=== PATIENT | female | born 1950 | race African-American/Black ===

== ENCOUNTER 2016-11-17 15:11 | Emergency (ER) | payer BC ==
[2016-11-17] MEDS ORDERED: NS 0.9% 1000 ML* 1,000 ML IV ONE (15:46)
[2016-11-17 16:30] LABS: Hematocrit 37 % (35-47); Hemoglobin 11.6 g/dl (12.0-16.0); Mean Corpuscular HGB Conc 32 g/dl (31-36); Mean Corpuscular Hemoglobin 23 pg (27-31); Mean Corpuscular Volume 73 fL (80-97); Mean Platelet Volume 9 um3 (7.4-10.4); Red Cell Distribution Width 16 % (10.5-15); White Blood Count 9.1 10^3/ul (3.5-10.8)
[2016-11-17 16:34] LABS: Add Diff/Slide Review? Slide Review Added; Comments Flag Yes
[2016-11-17 16:35] LABS: Albumin 4.1 g/dL (3.2-5.2); BUN/Creatinine Ratio 18.6 (8-20); C Reactive Protein 2.77 mg/L (< 5.00); Calcium 9.9 mg/dL (8.6-10.3); EGFR African American 85.4 (>60); EGFR Non-African American 66.4 (>60); Globulin 3.6 g/dL (2-4); Magnesium 2.3 mg/dL (1.9-2.7); Potassium 3.6 mmol/L (3.5-5.0); Total Bilirubin 0.4 mg/dL (0.2-1.0); Total Protein 7.7 g/dL (6.4-8.9)
[2016-11-17] MEDS ORDERED: Iohexol 300* (CONTRAST) 10 ML SDV IV ONE (16:56)
[2016-11-17 17:42] LABS: Urine Bacteria Absent (Absent); Urine Bilirubin Negative (Negative); Urine Glucose Negative (Negative); Urine Nitrite Negative (Negative)
[2016-11-17 18:25] VITALS: BP 173/88
[2016-11-17] MEDS ORDERED: Ondansetron INJ* 2 MG/ML VIAL IV ONE (18:48)
--- NOTE | 2016-11-17 20:10 | RAD ---
CLINICAL HISTORY: Intermittent abdominal pain and cramping. COMPARISON: None TECHNIQUE: Contrast enhanced CT examination of the abdomen and pelvis from the lung bases through the initial tuberosities. The patient received 89 mL Omnipaque 300 intravenously prior to imaging.The patient received oral contrast as well prior to imaging. FINDINGS: VISUALIZED LUNG BASES: The visualized lung bases are grossly clear. There is no pleural effusion. ABDOMEN AND PELVIS: The liver, spleen, pancreas and adrenal glands are grossly normal in appearance. The gallbladder is normal. At the lower pole of the right kidney (coronal image 54) there is a 3 mm calcification. Otherwise the kidneys are normal in appearance without focal mass or signs of hydronephrosis. The oral contrast has progressed as far as the splenic flexure. The small and large bowel are not distended. The diminutive 4 mm diameter appendix is identified in the right lower quadrant (image 53) with a small amount of gas in the lumen. The gas and stool-filled colon does not exhibit any acute inflammatory change. There is no gross retroperitoneal or mesenteric lymphadenopathy. The pelvic viscera is normal in appearance. The mildly calcified abdominal aorta and iliac arteries are normal in course and diameter. Diffusely in the visualized vertebral body exhibit a "mottled" appearance with innumerable small foci of hyperattenuation (for example sagittal image 60 of 136). To a lesser extent a similar appearance is seen in the pelvis and visualized femurs. This is not seen in the visualized ribs. IMPRESSION: 1. No acute inflammatory change of the gastrointestinal tract. 2. Innumerable hyperattenuating foci seen throughout the visualized vertebral bodies of uncertain clinical significance. Please correlate to a history of malignancy or perhaps metabolic disorder such as hyperparathyroidism. 3. Additional chronic and degenerative changes described in the body of the report.
--- NOTE | 2016-11-18 08:51 | ED ---
Aleksandra Dugan Claudia, scribed for Levi Elizalde MD on 11/17/16 at 1547 . Abdominal Pain/Female - HPI Summary HPI Summary: 66 year old female presets to [facility] with abd pain and diarrhea sudden onset that has been consistent since. She denies fever, chills, nausea, vomiting. Pt notes the abd discomfort is in the form of cramping. Pt notes that she has been to her PCP several times and was given a Rx to stop the diarrhea but it makes her constipated and uncomfortable. Pt just returned from vacation in [facility]. She notes that she thinks she might have a parasite since she has associated Sx of weight loss. Pt denies any alleviating or aggravating factors. - History of Current Complaint Chief Complaint: EDAbdPain Stated Complaint: ABD PAIN Time Seen by Provider: 11/17/16 15:36 Hx Obtained From: Patient Onset/Duration: Sudden Onset, Lasting Weeks, Still Present Timing: Constant Pain Intensity: 8 Pain Scale Used: 0-10 Numeric Location: Diffuse Radiates: No Character: Cramping Aggravating Factor(s): Nothing Alleviating Factor(s): Nothing Associated Signs and Symptoms: Positive: Diarrhea. Negative: Fever, Blood in Stool, Nausea, Vomiting Allergies/Adverse Reactions: Allergies Allergy/AdvReac Type Severity Reaction Status Date / Time No Known Allergies Allergy Verified 01/04/15 14:29 Home Medications: Home Medications Omeprazole CAP* [Prilosec CAP* 20 MG] 11/17/16 [History] PMH/Surg Hx/FS Hx/Imm Hx Previously Healthy: Yes Endocrine/Hematology History: Denies: Hx Diabetes Cardiovascular History: Denies: Hx Hypertension Respiratory History: Reports: Hx Asthma Infectious Disease History: No Infectious Disease History: Denies: Hx Clostridium Difficile, Hx Hepatitis, Hx Human Immunodeficiency Virus (HIV), Hx of Known/Suspected MRSA, Hx Shingles, Hx Tuberculosis, Hx Known/ Suspected VRE, Hx Known/Suspected VRSA, History Other Infectious Disease, Traveled Outside the [place] in Last 30 Days - Family History Known Family History: Positive: Hypertension, Diabetes - Social History Occupation: Employed Full-time Lives: With Family Alcohol Use: None Substance Use Type: Reports: None Smoking Status (MU): Never Smoked Tobacco Review of Systems Positive: Other - weight loss. Negative: Fever, Chills Eyes: Negative ENT: Negative Cardiovascular: Negative Respiratory: Negative Positive: Abdominal Pain, Diarrhea. Negative: Vomiting, Nausea Genitourinary: Negative Musculoskeletal: Negative Skin: Negative Neurological: Negative Psychological: Normal All Other Systems Reviewed And Are Negative: Yes Physical Exam - Summary Physical Exam Summary: VITAL SIGNS: Reviewed. GENERAL: Patient is a well-developed and nourished female who is lying comfortable in the stretcher. Patient is not in any acute respiratory distress. HEAD AND FACE: No signs of trauma. No ecchymosis, hematomas or skull depressions. No sinus tenderness. EYES: PERRLA, EOMI x 2, No injected conjunctiva, no nystagmus. EARS: Hearing grossly intact. Ear canals and tympanic membranes are within normal limits. MOUTH: Oropharynx within normal limits. NECK: Supple, trachea is midline, no adenopathy, no JVD, no carotid bruit, no c- spine tenderness, neck with full ROM. CHEST: Symmetric, no tenderness at palpation LUNGS: Clear to auscultation bilaterally. No wheezing or crackles. CVS: Regular rate and rhythm, S1 and S2 present, no murmurs or gallops appreciated. ABDOMEN: Soft. No signs of distention. No rebound no guarding, and no masses palpated. Bowel sounds are normal. Some tenderness in the left upper quadrant. EXTREMITIES: FROM in all major joints, no edema, no cyanosis or clubbing. NEURO: Alert and oriented x 3. No acute neurological deficits. Speech is normal and follows commands. SKIN: Dry and warm Triage Information Reviewed: Yes Vital Signs On Initial Exam: Initial Vitals Temp Pulse Resp BP Pulse Ox 98.2 F 90 20 179/80 98 11/17/16 15:13 11/17/16 15:13 11/17/16 15:13 11/17/16 15:13 11/17/16 15:13 Vital Signs Reviewed: Yes - [place] Coma Scale Coma Scale Total: 15 Diagnostics - Vital Signs Vital Signs Temp Pulse Resp BP Pulse Ox 11/17/16 15:13 98.2 F 90 20 179/80 98 - Laboratory Lab Results: Lab Results 11/17/16 11/17/16 11/17/16 Range/Units 16:05 16:05 16:05 WBC 9.1 (3.5-10.8) 10^3/ul RBC 5.00 (4.0-5.4) 10^6/ul Hgb 11.6 L (12.0-16.0) g/dl Hct 37 (35-47) % MCV 73 L (80-97) fL MCH 23 L (27-31) pg MCHC 32 (31-36) g/dl RDW 16 H (10.5-15) % Plt Count 216 (150-450) 10^3/ul MPV 9 (7.4-10.4) um3 Neut % (Auto) 46.6 (38-83) % Lymph % (Auto) 37.6 (25-47) % [place] % (Auto) 9.2 H (1-9) % Eos % (Auto) 6.1 H (0-6) % Baso % (Auto) 0.5 (0-2) % Absolute Neuts (auto) 4.3 (1.5-7.7) 10^3/ul Absolute Lymphs (auto) 3.4 (1.0-4.8) 10^3/ul Absolute Monos (auto) 0.8 (0-0.8) 10^3/ul Absolute Eos (auto) 0.6 (0-0.6) 10^3/ul Absolute Basos (auto) 0 (0-0.2) 10^3/ul Absolute Nucleated RBC 0.01 10^3/ul Nucleated RBC % 0.1 Sodium 136 (133-145) mmol/L Potassium 3.6 (3.5-5.0) mmol/L Chloride 104 (101-111) mmol/L Carbon Dioxide 28 (22-32) mmol/L Anion Gap 4 (2-11) mmol/L BUN 16 (6-24) mg/dL Creatinine 0.86 (0.51-0.95) mg/dL Est GFR ( Amer) 85.4 (>60) Est GFR (Non-Af Amer) 66.4 (>60) BUN/Creatinine Ratio 18.6 (8-20) Glucose 100 (70-100) mg/dL Lactic Acid 0.7 (0.5-2.0) mmol/L Calcium 9.9 (8.6-10.3) mg/dL Magnesium 2.3 (1.9-2.7) mg/dL Total Bilirubin 0.40 (0.2-1.0) mg/dL AST 17 (13-39) U/L ALT 11 (7-52) U/L Alkaline Phosphatase 94 (34-104) U/L C-Reactive Protein 2.77 (< 5.00) mg/L Total Protein 7.7 (6.4-8.9) g/dL Albumin 4.1 (3.2-5.2) g/dL Globulin 3.6 (2-4) g/dL Albumin/Globulin Ratio 1.1 (1-3) Amylase 42 (29-103) U/L Lipase 13 (11.0-82.0) U/L Urine Color Urine Appearance Urine pH (5-9) Ur Specific [place] (1.010-1.030) Urine Protein (Negative) Urine Ketones (Negative) Urine Blood (Negative) Urine Nitrate (Negative) Urine Bilirubin (Negative) Urine Urobilinogen (Negative) Ur Leukocyte Esterase (Negative) Urine WBC (Auto) (Absent) Urine RBC (Auto) (Absent) Ur Squamous Epith Cells (Absent) Urine Bacteria (Absent) Urine Glucose (Negative) 11/17/16 Range/Units 17:22 WBC (3.5-10.8) 10^3/ul RBC (4.0-5.4) 10^6/ul Hgb (12.0-16.0) g/dl Hct (35-47) % MCV (80-97) fL MCH (27-31) pg MCHC (31-36) g/dl RDW (10.5-15) % Plt Count (150-450) 10^3/ul MPV (7.4-10.4) um3 Neut % (Auto) (38-83) % Lymph % (Auto) (25-47) % [place] % (Auto) (1-9) % Eos % (Auto) (0-6) % Baso % (Auto) (0-2) % Absolute Neuts (auto) (1.5-7.7) 10^3/ul Absolute Lymphs (auto) (1.0-4.8) 10^3/ul Absolute Monos (auto) (0-0.8) 10^3/ul Absolute Eos (auto) (0-0.6) 10^3/ul Absolute Basos (auto) (0-0.2) 10^3/ul Absolute Nucleated RBC 10^3/ul Nucleated RBC % Sodium (133-145) mmol/L Potassium (3.5-5.0) mmol/L Chloride (101-111) mmol/L Carbon Dioxide (22-32) mmol/L Anion Gap (2-11) mmol/L BUN (6-24) mg/dL Creatinine (0.51-0.95) mg/dL Est GFR ( Amer) (>60) Est GFR (Non-Af Amer) (>60) BUN/Creatinine Ratio (8-20) Glucose (70-100) mg/dL Lactic Acid (0.5-2.0) mmol/L Calcium (8.6-10.3) mg/dL Magnesium (1.9-2.7) mg/dL Total Bilirubin (0.2-1.0) mg/dL AST (13-39) U/L ALT (7-52) U/L Alkaline Phosphatase (34-104) U/L C-Reactive Protein (< 5.00) mg/L Total Protein (6.4-8.9) g/dL Albumin (3.2-5.2) g/dL Globulin (2-4) g/dL Albumin/Globulin Ratio (1-3) Amylase (29-103) U/L Lipase (11.0-82.0) U/L Urine Color Straw Urine Appearance Clear Urine pH 6.0 (5-9) Ur Specific [place] 1.006 L (1.010-1.030) Urine Protein Negative (Negative) Urine Ketones Negative (Negative) Urine Blood 1+ H (Negative) Urine Nitrate Negative (Negative) Urine Bilirubin Negative (Negative) Urine Urobilinogen Negative (Negative) Ur Leukocyte Esterase Negative (Negative) Urine WBC (Auto) Trace(0-5/hpf) (Absent) Urine RBC (Auto) 1+(3-5/hpf) H (Absent) Ur Squamous Epith Cells Present H (Absent) Urine Bacteria Absent (Absent) Urine Glucose Negative (Negative) Result Diagrams: 11/17/16 16:05 11/17/16 16:05 Lab Statement: Any lab studies that have been ordered have been reviewed, and results considered in the medical decision making process. - EKG 17:25 Cardiac Rate: NL EKG Rhythm: Sinus Rhythm - 68 beats/min ST Segment: Normal - no ST elevation Abdominal Pain Fem Course/Dx - Course Course Of Treatment: 66 year old female presets to [facility] with abd pain and diarrhea sudden onset that has been consistent since. She denies fever, chills, nausea, vomiting. Pt notes the abd discomfort is in the form of cramping. Pt notes that she has been to her PCP several times and was given a Rx to stop the diarrhea but it makes her constipated and uncomfortable. Pt just returned from vacation in [facility]. She notes that she thinks she might have a parasite since she has associated Sx of weight loss. Pt denies any alleviating or aggravating factors. In the ED course an IV access was obtained. Patient was placed in a quality assurance monitor body. Patient was started with IV fluids and Zofran for nausea and vomiting. Labs within normal limits except for Hb 11.6 w/o bands. UA contaminated. After medications she reports feeling better. EKG shows a NSR at w/o ST elevations. She is drinking oral contrast for a CT scan to r/o diverticulitis since she report increase pain in the LLQ. We are also awaiting for stool cultures. I will signed out the patient to Dr. Gipson to f/u abdominal and pelvic CT and stool cultures and fecal leukocytes. She is hemodynamically stable and A+O x 3. - Diagnoses Differential Diagnosis: Positive: Bowel Obstruction, Diverticulitis, Urinary Tract Infection Provider Diagnoses: Abdominal pain, Diarrhea Discharge - Discharge Plan Condition: Stable Disposition: HOME Discharge Disposition Comment: Sign-out to Dr. Larios waiting Abd CT Patient Education Materials: Acute Diarrhea (ED), Abdominal Pain (ED) Referrals: Gilberto Haley MD [Primary Care Provider] - Additional Instructions: Please follow up with your primary care provider. The documentation as recorded by the Aleksandra shin Claudia accurately reflects the service I personally performed and the decisions made by me, Levi Elizalde MD.
--- NOTE | 2016-11-18 10:04 | ED ---
Progress - Progress Note Progress Note: 66 y/o F was signed out from Dr. Elizalde. Discussed results with pt at 2023. Pt will be DC'd. UPDATE: Pt's stool cx + lactoferrin; (-) c. diff; other cx's still pending. No change in tx until all results returned. AKUA ONTIVEROS 10:04 - Results/Orders Results/Orders: CT A/P IMPRESSION: 1. No acute inflammatory change of the gastrointestinal tract. 2. Innumerable hyperattenuating foci seen throughout the visualized vertebral bodies of uncertain clinical significance. Please correlate to a history of malignancy or perhaps metabolic disorder such as hyperparathyroidism. 3. Additional chronic and degenerative changes described in the body of the report. Course/Dx - Course Course Of Treatment: 66 year old female presets to [facility] with abd pain and diarrhea sudden onset that has been consistent since. She denies fever, chills, nausea, vomiting. Pt notes the abd discomfort is in the form of cramping. Pt notes that she has been to her PCP several times and was given a Rx to stop the diarrhea but it makes her constipated and uncomfortable. Pt just returned from vacation in [facility]. She notes that she thinks she might have a parasite since she has associated Sx of weight loss. Pt denies any alleviating or aggravating factors. In the ED course an IV access was obtained. Patient was placed in a regional director. Patient was started with IV fluids and Zofran for nausea and vomiting. Labs within normal limits except for Hb 11.6 w/o bands. UA contaminated. After medications she reports feeling better. EKG shows a NSR at w/o ST elevations. She is drinking oral contrast for a CT scan to r/o diverticulitis since she report increase pain in the LLQ. We are also awaiting for stool cultures. I will signed out the patient to Dr. Gipson to f/u abdominal and pelvic CT and stool cultures and fecal leukocytes. She is hemodynamically stable and A+O x 3. - Diagnoses Provider Diagnoses: Abdominal pain, Diarrhea
== END 2016-11-17 21:24 | disposition home or self-care (01) ==
LOC: ED 15:11
DX: R10.9 Unspecified abdominal pain (principal); R19.7 Diarrhea, unspecified
CPT/HCPCS: 36415; 74177; 80053; 81003; 81015; 82150; 83605; 83630; 83690; 83735; 85025; 86140; 87045; 87046; 87493; 87899; 93005; 96374; 99283; Q9967

== ENCOUNTER 2017-11-26 19:27 | Emergency (ER) | payer BC ==
[2017-11-26] MEDS ORDERED: Lidocaine 2% VISCOUS* 15 ML UDC PO ONE (20:33)
--- NOTE | 2017-11-26 21:34 | ED ---
Throat Pain/Nasal Congestion - HPI Summary HPI Summary: Complains of subjective fever, chills, green nasal discharge, cough, sore throat , mild CHEN, bilateral ear pain 4 days. Denies SOB, CP, N/V/D, abdominal pain, change in urinary BM. Medical history is allergies, asthma. - History of Current Complaint Chief Complaint: EDThroatPain Time Seen by Provider: 11/26/17 20:12 Hx Obtained From: Patient Onset/Duration: Gradual Onset Severity: Moderate Associated Signs And Symptoms: Positive: Dysphagia, Sinus Discomfort, Nasal Discharge Cough: Nonproductive Related History: Seasonal Allergies - Epiglottits Risk Factors Epiglottis Risk Factors: Negative - Allergies/Home Medications Allergies/Adverse Reactions: Allergies Allergy/AdvReac Type Severity Reaction Status Date / Time No Known Allergies Allergy Verified 01/04/15 14:29 PMH/Surg Hx/FS Hx/Imm Hx Endocrine/Hematology History: Denies: Hx Anticoagulant Therapy, Hx Diabetes Cardiovascular History: Denies: Hx Hypertension Respiratory History: Reports: Hx Asthma History: Denies: Hx Dialysis Infectious Disease History: No Infectious Disease History: Denies: Hx Clostridium Difficile, Hx Hepatitis, Hx Human Immunodeficiency Virus (HIV), Hx of Known/Suspected MRSA, Hx Shingles, Hx Tuberculosis, Hx Known/ Suspected VRE, Hx Known/Suspected VRSA, History Other Infectious Disease, Traveled Outside the [place] in Last 30 Days - Family History Known Family History: Positive: Hypertension, Diabetes - Social History Alcohol Use: None Substance Use Type: Reports: None Smoking Status (MU): Never Smoked Tobacco Review of Systems Positive: Fever, Chills Eyes: Negative Positive: Sore Throat, Ear Ache, Nasal Discharge Cardiovascular: Negative Respiratory: Negative Gastrointestinal: Negative Genitourinary: Negative Musculoskeletal: Negative Skin: Negative Positive: Headache Psychological: Normal All Other Systems Reviewed And Are Negative: Yes Physical Exam Triage Information Reviewed: Yes Vital Signs On Initial Exam: Initial Vitals Temp Pulse Resp BP Pulse Ox 98.6 F 85 20 150/78 98 11/26/17 19:38 11/26/17 19:38 11/26/17 19:38 11/26/17 19:38 11/26/17 19:38 Vital Signs Reviewed: Yes Appearance: Positive: Well-Appearing Skin: Positive: Warm Head/Face: Positive: Normal Head/Face Inspection Eyes: Positive: Normal ENT: Positive: Pharyngeal erythema, Nasal drainage, TMs normal, Tonsillar swelling, Sinus tenderness, Uvula midline. Negative: Tonsillar exudate, Trismus , Muffled voice, Hoarse voice Neck: Positive: Supple Respiratory/Lung Sounds: Positive: Clear to Auscultation Cardiovascular: Positive: Normal Abdomen Description: Positive: Nontender Musculoskeletal: Positive: Normal Neurological: Positive: Normal Psychiatric: Positive: Normal AVPU Assessment: Alert - Jeff Coma Scale Best Eye Response: 4 - Spontaneous Best Motor Response: 6 - Obeys Commands Best Verbal Response: 5 - Oriented Coma Scale Total: 15 Diagnostics - Vital Signs Vital Signs Temp Pulse Resp BP Pulse Ox 11/26/17 19:38 98.6 F 85 20 150/78 98 - Laboratory Lab Statement: Any lab studies that have been ordered have been reviewed, and results considered in the medical decision making process. EENT Course/Dx - Course Course Of Treatment: Complains of subjective fever, chills, green nasal discharge, cough, sore throat, mild CHEN, bilateral ear pain 4 days. Denies SOB , CP, N/V/D, abdominal pain, change in urinary BM. Medical history is allergies , asthma. Strep negative. Likely sinusitis. Vital signs within normal limits. Rx for azithromycin, lidocaine, hydrocodone 5 mg 5 tabs to help patient sleep with throat pain - Diagnoses Provider Diagnoses: Sinusitis Discharge - Sign-Out/Discharge Documenting (check all that apply): Patient Departure - Discharge Plan Condition: Stable Disposition: HOME Prescriptions: Azithromycin 250 mg PO DAILY 5 Days #4 tablet HYDROcodone/ACETAMIN 5-325 MG* [[place] 5-325 TAB*] 1 tab PO Q6H PRN 2 Days #5 tab MDD 4 tabs PRN Reason: Pain Lidocaine 2% VISCOUS* [Xylocaine 2% Viscous*] 15 ml SWISH SPIT Q6H PRN #1 btl PRN Reason: Pain Patient Education Materials: Sinusitis (ED) Referrals: Gilberto Haley MD [Primary Care Provider] - Additional Instructions: Follow-up with primary care. Return to the ED for any new or worsening symptoms - Billing Disposition and Condition Condition: STABLE Disposition: Home
[2017-11-26] MEDS ORDERED: Azithromycin TAB* 250 MG PO ONE (22:18)
[2017-11-26] MEDS ORDERED: Ibuprofen TAB* 600 MG PO ONE (22:35)
[2017-11-26] MEDS ORDERED: Ibuprofen TAB* 600 MG ONE (22:36)
[2017-11-26 22:43] VITALS: BP 142/76
== END 2017-11-26 22:43 | disposition home or self-care (01) ==
LOC: ED 19:27
DX: J32.9 Chronic sinusitis, unspecified (principal); R51 Headache; J02.9 Acute pharyngitis, unspecified; H92.09 Otalgia, unspecified ear
CPT/HCPCS: 87651; 99282; A9270-GY

== ENCOUNTER 2018-04-11 15:58 | Emergency (ER) | payer BC ==
[2018-04-11 16:29] VITALS: BP 158/87
--- NOTE | 2018-04-11 17:43 | UC ---
Complaint Female HPI - HPI Summary HPI Summary: ONSET OF RIGHT FLANK PAIN LAST WEEK GETTING PROGRESSIVELY WORSE. PATIENT DENIES FEVER OR NAUSEA. HAD SOME URINARY FREQUENCY LAST NIGHT BUT NONE TODAY. NO DYSURIA OR VISIBLE HEMATURIA. HAD A KIDNEY STONE LAST YEAR WHILE SHE WAS [place]SE[place]. WHEN SHE RETURNED TO [place] SHE FOLLOWED UP WITH HER PCP AND WAS TOLD SHE WAS CLEAR. - History Of Current Complaint Chief Complaint: UCBackPain Stated Complaint: BACK PAIN Time Seen by Provider: 04/11/18 17:23 Hx Obtained From: Patient Onset/Duration: Gradual Onset, Lasting Days, Still Present Timing: Constant Severity Initially: Moderate Severity Currently: Moderate Pain Intensity: 8 Pain Scale Used: 0-10 Numeric Character: Sharp Aggravating Factor(s): Movement Alleviating Factor(s): Position Associated Signs And Symptoms: Positive: Back Pain. Negative: Fever, Nausea - Allergies/Home Medications Allergies/Adverse Reactions: Allergies Allergy/AdvReac Type Severity Reaction Status Date / Time No Known Allergies Allergy Verified 04/11/18 16:29 PMH/Surg Hx/FS Hx/Imm Hx Respiratory History: Asthma GI/ History: Kidney Stones Other History Of: Negative For: Anticoagulant Therapy - Surgical History Surgical History: None - Family History Known Family History: Positive: Hypertension, Diabetes - Social History Alcohol Use: None Substance Use Type: None Smoking Status (MU): Never Smoked Tobacco Review of Systems All Other Systems Reviewed And Are Negative: Yes Constitutional: Positive: Negative Respiratory: Positive: Negative Cardiovascular: Positive: Negative Gastrointestinal: Positive: Negative Genitourinary: Positive: Frequency, Other - RIGHT FLANK PAIN Physical Exam Triage Information Reviewed: Yes Appearance: Well-Appearing, No Pain Distress, Well-Nourished Vital Signs: Initial Vital Signs Temp 98.0 F 04/11/18 16:24 Pulse 85 04/11/18 16:24 Resp 16 04/11/18 16:24 BP 158/87 04/11/18 16:24 Pulse Ox 99 04/11/18 16:24 Laboratory Tests 04/11/18 17:49 POC Urine Color Yellow POC Urine Clarity Clear POC Urine pH 6.5 POC Ur Specif [place] 1.025 POC Urine Protein Negative POC Ur Glucose (UA) Negative POC Urine Ketones Negative POC Urine Blood Negative POC Urine Nitrite Negative POC Urine Bilirubin Negative POC Urine Urobilinogen 0.2 POC U Leukocyte Esteras Negative Vital Signs Reviewed: Yes Eyes: Positive: Conjunctiva Clear ENT: Positive: Hearing grossly normal Neck: Positive: Supple Respiratory Exam: Normal Cardiovascular Exam: Normal Abdomen Description: Positive: Nontender, Soft. Negative: CVA Tenderness (R), CVA Tenderness (L), Distended, Guarding Musculoskeletal: Positive: No Edema, Other: - RIGHT MID/LOW BACK PAIN WITH BENDING AND ROTATING TO RIGHT Neurological: Positive: Alert Psychological: Positive: Normal Response To Family, Age Appropriate Behavior Skin: Negative: Rashes Complaint Female Dx - Course Course Of Treatment: PATIENTS CLINICAL PRESENTATION IS NOT CONSISTENT WITH KIDNEY STONE TODAY. URINE DIP UNREMARKABLE. WE'LL TREAT MUSCLE STRAIN WITH MUSCLE RELAXER AND IBUPROFEN. REST, STRETCH, HEAT. TO THE ED IF SYMPTOMS WORSEN. - Differential Dx/Diagnosis Provider Diagnosis: Muscle strain Discharge - Sign-Out/Discharge Documenting (check all that apply): Patient Departure All imaging exams completed and their final reports reviewed: No Studies - Discharge Plan Condition: Stable Disposition: HOME Prescriptions: Cyclobenzaprine TAB* [Flexeril TAB*] 10 mg PO BID PRN #30 tab PRN Reason: Pain Ibuprofen TAB* [Motrin TAB* 600 MG] 1 tab PO Q6H PRN #30 tab PRN Reason: Pain Patient Education Materials: Muscle Strain (ED), Low Back Strain (ED) Referrals: Gilberto Haley MD [Primary Care Provider] - If Needed Additional Instructions: URINE TEST UNREMARKABLE TODAY. NO EVIDENCE OF KIDNEY STONE OR URINARY TRACT INFECTION. PRESENTATION MORE CONSISTENT WITH AN ACUTE MUSCLE STRAIN. TAKE IBUPROFEN NEEDED FOR DISCOMFORT. MUSCLE RELAXER BEFORE BED. YOUR SYMPTOMS SHOULD IMPROVE SIGNIFICANTLY OVER THE NEXT 1-2 WEEKS. IF YOU DO NOT IMPROVE EXPECTED FOLLOW-UP WITH YOUR PCP. BE SURE TO GO THROUGH SLOW RANGE OF MOTION AND STRETCHING EXERCISES DAILY YOU ARE ABLE TO PREVENT STIFFENING UP AND MAKING THE DISCOMFORT WORSE. GO TO THE ED WITHOUT FAIL IF YOU DEVELOP WORSENING PAIN, FEVER, BLOOD IN THE URINE, NAUSEA OR ANY OTHER CONCERNING SYMPTOMS. - Billing Disposition and Condition Condition: STABLE Disposition: Home
== END 2018-04-11 18:26 | disposition home or self-care (01) ==
LOC: UCEAST 15:58
DX: S39.012A Strain of muscle, fascia and tendon of lower back, initial encounter (principal); X58.XXXA Exposure to other specified factors, initial encounter; Y92.9 Unspecified place or not applicable; R35.0 Frequency of micturition; Z87.442 Personal history of urinary calculi
CPT/HCPCS: 81003; 99212; G0463

== ENCOUNTER 2018-04-14 16:53 | Emergency (ER) | payer BC ==
[2018-04-14] MEDS ORDERED: Ondansetron INJ* 2 MG/ML VIAL IV ONE (17:26)
[2018-04-14] MEDS ORDERED: Morphine VIAL* 4 MG/ML VIAL (1 ml vial) IV ONE (17:26)
[2018-04-14 17:46] LABS: Hematocrit 37 % (35-47); Hemoglobin 11.7 g/dl (12.0-16.0); Mean Corpuscular HGB Conc 31 g/dl (31-36); Mean Corpuscular Hemoglobin 22 pg (27-31); Mean Platelet Volume 9.4 fL (7.4-10.4); Platelet Count 223 10^3/ul (150-450); Red Blood Count 5.26 10^6/ul (4.00-5.40); Red Cell Distribution Width 15 % (10.5-15); White Blood Count 12.8 10^3/ul (3.5-10.8)
--- NOTE | 2018-04-14 17:48 | ED ---
Throat Pain/Nasal Congestion - HPI Summary HPI Summary: This patient is a 67 year old F presenting to [facility] with a chief complaint of bleeding from the lower left jaw from tooth extraction since 16:30 today. The patient rates the pain 8/10 in severity. Patient was coming from [facility] with Dr. Roxanne Schneider, who could not keep the patient there because the office was closing. - History of Current Complaint Chief Complaint: EDDentalPain Time Seen by Provider: 04/14/18 17:09 Hx Obtained From: Patient Onset/Duration: Sudden Onset, Still Present - Allergies/Home Medications Allergies/Adverse Reactions: Allergies Allergy/AdvReac Type Severity Reaction Status Date / Time morphine Allergy Altered Verified 04/14/18 17:43 Mental Status Home Medications: Home Medications Ibuprofen TAB* [Motrin TAB* 600 MG] 600 mg PO Q8HR PRN 04/14/18 [History Confirmed 04/14/18] PMH/Surg Hx/FS Hx/Imm Hx Endocrine/Hematology History: Denies: Hx Anticoagulant Therapy, Hx Diabetes Cardiovascular History: Denies: Hx Hypertension Respiratory History: Reports: Hx Asthma History: Denies: Hx Dialysis Infectious Disease History: No Infectious Disease History: Denies: Hx Clostridium Difficile, Hx Hepatitis, Hx Human Immunodeficiency Virus (HIV), Hx of Known/Suspected MRSA, Hx Shingles, Hx Tuberculosis, Hx Known/ Suspected VRE, Hx Known/Suspected VRSA, History Other Infectious Disease, Traveled Outside the in Last 30 Days - Family History Known Family History: Positive: Hypertension, Diabetes - Social History Alcohol Use: None Substance Use Type: Reports: None Smoking Status (MU): Never Smoked Tobacco Review of Systems Negative: Fever Positive: Other - Bleeding from lower left jaw All Other Systems Reviewed And Are Negative: Yes Physical Exam - Summary Physical Exam Summary: VITAL SIGNS: Reviewed. GENERAL: Patient is a well-developed and nourished FEMALE who is lying comfortable in the stretcher. Patient is not in any acute respiratory distress. HEAD AND FACE: No signs of trauma. No ecchymosis, hematomas or skull depressions. No sinus tenderness. EYES: PERRLA, EOMI x 2, No injected conjunctiva, no nystagmus. EARS: Hearing grossly intact. Ear canals and tympanic membranes are within normal limits. MOUTH: Patient is missing teeth numbers 18, 19, and 20. She is actively bleeding from number 18. NECK: Supple, trachea is midline, no adenopathy, no JVD, no carotid bruit, no c- spine tenderness, neck with full ROM. CHEST: Symmetric, no tenderness at palpation LUNGS: Clear to auscultation bilaterally. No wheezing or crackles. CVS: Regular rate and rhythm, S1 and S2 present, no murmurs or gallops appreciated. High blood pressure observed. ABDOMEN: Soft, non-tender. No signs of distention. No rebound no guarding, and no masses palpated. Bowel sounds are normal. EXTREMITIES: FROM in all major joints, no edema, no cyanosis or clubbing. NEURO: Alert and oriented x 3. No acute neurological deficits. Speech is normal and follows commands. SKIN: Dry and warm Triage Information Reviewed: Yes Vital Signs On Initial Exam: Initial Vitals Temp Pulse Resp BP Pulse Ox 99.5 F 97 22 168/128 98 04/14/18 17:09 04/14/18 17:09 04/14/18 17:09 04/14/18 17:09 04/14/18 17:09 Vital Signs Reviewed: Yes Diagnostics - Vital Signs Vital Signs Temp Pulse Resp BP Pulse Ox 04/14/18 17:14 170/90 04/14/18 17:09 99.5 F 97 22 168/128 98 - Laboratory Lab Results: Lab Results 04/14/18 Range/Units 17:28 WBC 12.8 H (3.5-10.8) 10^3/ul RBC 5.26 (4.00-5.40) 10^6/ul Hgb 11.7 L (12.0-16.0) g/dl Hct 37 (35-47) % MCV Pending MCH 22 L (27-31) pg MCHC 31 (31-36) g/dl RDW 15 (10.5-15) % Plt Count 223 (150-450) 10^3/ul MPV 9.4 (7.4-10.4) fL Neut % (Auto) Pending Lymph % (Auto) Pending [place]ers % (Auto) Pending Eos % (Auto) Pending Baso % (Auto) Pending Absolute Neuts (auto) Pending Absolute Lymphs (auto) Pending Absolute Monos (auto) Pending Absolute Eos (auto) Pending Absolute Basos (auto) Pending Absolute Nucleated RBC Pending Nucleated RBC % Pending Result Diagrams: 04/14/18 17:28 04/14/18 17:28 Lab Statement: Any lab studies that have been ordered have been reviewed, and results considered in the medical decision making process. - Radiology Chest X-Ray Radiology Interpretation Completed By: ED Physician Summary of Radiographic Findings: 19:45. No acute pathology. Pending official report. - EKG 17:32 Cardiac Rate: NL - 93 BPM EKG Rhythm: Sinus Rhythm EKG Comparison: No Significant Change - From 11/17/2016 Summary of EKG Findings: ST depressions at V2 and aVF EENT Course/Dx - Course Assessment/Plan: This patient is a 67 year old F presenting to [facility] with a chief complaint of bleeding from the lower left jaw from tooth extraction since 16:30 today. The patient rates the pain 8/10 in severity. Patient was coming from [facility] with Dr. Roxanne Schneider, who could not keep the patient there because the office was closing. Blood work without any significant abnormality except for WBCs of 12.8 without any bandemia. Glucose of 121 and alkaline phosphatase of 113. The patient continues to have some bleeding from a tooth extraction #18. I placed Surgicel with gauze and the socket #18 and we were able to stop the bleeding. Dr. Schneider who is the patients dentist came into the emergency department and agrees that the bleeding has stopped. Therefore the patient will be discharged home with follow-up with him tomorrow. The patient was found to be hypertensive right now at 136/74. Patient will follow-up with PCP for recheck of the blood pressure. I discussed all the findings and test results with the patient. Patient was instructed to return to the emergency room immediately if any of the symptoms return or worsens. Plan of care was discussed with the patient and understands and agrees. All questions were answered at patient satisfaction. There were no further complaints or concerns. Lung exam before discharge: CTA B/L. Good air exchange. No wheezing or crackles heard. CVS: S1 and S2 present. No murmurs appreciated. Patient is alert and oriented x 3. Patient is hemodynamically stable. Patient will be discharged home with follow up PCP in the next 2-3 days - Diagnoses Provider Diagnoses: Toothache, Bleeding in mouth Discharge - Sign-Out/Discharge Documenting (check all that apply): Patient Departure - D/C - Discharge Plan Condition: Stable Disposition: HOME Patient Education Materials: Toothache (ED) Referrals: Gilberto Haley MD [Primary Care Provider] - [address] Roxanne Schneider DDS [Other] - 3 Days Additional Instructions: RETURN THE ED FOR ANY WORSENING OR NEW SYMPTOMS. FOLLOW UP WITH YOUR PRIMARY CARE PROVIDER AND DR. SCHNEIDER WITHIN 3 DAYS. - Billing Disposition and Condition Condition: STABLE Disposition: Home - Attestation Statements Document Initiated by Kellieibe: Yes Documenting Scribe: Basil Ingram Provider For Whom Brock is Documenting (Include Credential): Levi Elizalde MD Scribe Attestation: Basil Dugan scribed for Levi Elizalde MD on 04/14/18 at 2121. Scribe Documentation Reviewed: Yes Provider Attestation: The documentation as recorded by the Basil shin accurately reflects the service I personally performed and the decisions made by me, Levi Elizalde MD Status of Scribe Document: Viewed
[2018-04-14 18:01] LABS: ABS Basophils 0.1 10^3/ul (0-0.2); ABS Eosinophils 0.2 10^3/ul (0-0.6); ABS Lymphocytes 1.9 10^3/ul (1.0-4.8); ABS Monocytes 0.7 10^3/ul (0-0.8); ABS Neutrophils 9.9 10^3/ul (1.5-7.7); ABS Nucleated RBC 0 10^3/ul; Eosinophil % 1.7 %; Lymphocyte % 14.8 %; Mean Corpuscular Volume 71 fL (80-97); Nucleated Red Blood Cells % 0.2
[2018-04-14 20:52] VITALS: BP 136/74
== END 2018-04-14 20:51 | disposition home or self-care (01) ==
LOC: ED 16:53
DX: K08.89 Other specified disorders of teeth and supporting structures (principal); Z88.6 Allergy status to analgesic agent
CPT/HCPCS: 36415; 71045; 80053; 84443; 84484; 85025; 85610; 85730; 93005; 96374; 96375; 99283